=== PATIENT | female | born 1995 ===

== ENCOUNTER 2021-02-02 11:14 | Outpatient (CLI) | payer MEDICAID ==
[~2021-02-02] VITALS: Ht 157.5 cm; Wt 161.3 kg
[2021-02-02 12:01] LABS: MICROSCOPIC INDICATED
[2021-02-02 12:13] LABS: AMPHETAMINE SCREEN, URINE Negative (Negative); BARBITURATE SCREEN, URINE Negative (Negative); BENZODIAZEPINE SCREEN, URINE Negative (Negative); CANNABINOID SCREEN, URINE Positive (Negative); COCAINE SCREEN, URINE Negative (Negative); METHADONE SCREEN, URINE Negative (Negative); OPIATE SCREEN, URINE Negative (Negative)
== END 2021-02-02 11:25 | disposition home or self-care (01) ==
LOC: LDOP 11:14
PROVIDERS: ATTEND Obstetrics & Gynecology
DX: O26.892 Other specified pregnancy related conditions, second trimester (principal); R10.9 Unspecified abdominal pain; Z3A.16 16 weeks gestation of pregnancy
CPT/HCPCS: 80307; 81001; 87086; 87147; 99211; G0463